=== PATIENT | female | born 1995 | race Caucasian/White ===

== ENCOUNTER 2018-09-06 16:16 | Outpatient (CLI) | payer BC ==
[2018-09-06] MEDS: LACTATED RINGER'S 1,000 ML IV (17:28)
[2018-09-06 17:38] LABS: ADD MAN DIFF? NO
[2018-09-06 17:39] LABS: BASOPHILS % 0.2 % (0.0-2.0); EOSINOPHILS % 0.3 % (0.0-7.0); HEMATOCRIT 35.8 % (37.0-47.0); HEMOGLOBIN 11.8 g/dl (12.0-16.0); LYMPHOCYTES # 1.8 10^3/ul (0.8-2.9); LYMPHOCYTES % 15.8 % (15.0-51.0); MEAN CORPUSCULAR VOLUME 84.8 fl (82.0-101.0); MEAN PLATELET VOLUME 9.3 fl (7.4-10.4); MONOCYTE # 0.7 10^3/ul (0.3-0.9); MONOCYTES % 6.3 % (0.0-11.0); NEUTROPHIL # 8.9 10^3/ul (1.6-7.5); NEUTROPHILS % 77.1 % (39.0-77.0); PLATELET COUNT 206 10^3/UL (140-415); RED BLOOD COUNT 4.22 10^6/ul (4.20-5.40); RED CELL DISTRIBUTION WIDTH 12.2 % (11.5-14.5)
[2018-09-06 17:39] LABS: WHITE BLOOD COUNT 11.6 10^3/ul (4.8-10.8)
[2018-09-06 17:42] LABS: ADD UMIC NO; UR ASCORBIC ACID NEGATIVE (NEGATIVE); UR BILIRUBIN (Dip) NEGATIVE (NEGATIVE); UR BLOOD (Dip) NEGATIVE (NEGATIVE); UR CLARITY CLEAR (CLEAR); UR COLOR YELLOW (YELLOW); UR GLUCOSE (Dip) NEGATIVE (NEGATIVE); UR KETONES (Dip) NEGATIVE (NEGATIVE); UR LEUKOCYTE ESTERASE (Dip) NEGATIVE Leu/ul (NEGATIVE); UR NITRITE (Dip) NEGATIVE (NEGATIVE); UR SPECIFIC GRAVITY (Dip) 1.011 (1.003-1.030); UR TOTAL PROTEIN (Dip) NEGATIVE (NEGATIVE); UR UROBILINOGEN (Dip) NEGATIVE (NEGATIVE)
[2018-09-06 17:57] LABS: LIPASE 150 U/L (23-300)
[2018-09-06 17:57] LABS: AMYLASE 53 U/L (11-123)
[2018-09-06 19:29] LABS: ALANINE AMINOTRANSFERASE 20 IU/L (13-69); ALBUMIN 3.7 g/dl (3.3-4.9); ALBUMIN/GLOBULIN RATIO 1.32; ALKALINE PHOSPHATASE 79 IU/L (42-121); ANION GAP 9 (5-13); ASPARTATE AMINO TRANSFERASE 29 IU/L (15-46); BILIRUBIN,INDIRECT 0.5 mg/dl (0-1.1); BILIRUBIN,TOTAL 0.5 mg/dl (0.2-1.3); BLOOD UREA NITROGEN 8 mg/dl (7-20); CALCIUM 8.5 mg/dl (8.4-10.2); CARBON DIOXIDE 24 mmol/L (21-31); CHLORIDE 104 mmol/L (97-110); CREATININE 0.41 mg/dl (0.44-1.00); Estimated GFR > 60 mL/min (>60); GLUCOSE 84 mg/dl (70-220); POTASSIUM 3.8 mmol/L (3.5-5.1); SODIUM 137 mmol/L (135-144); TOTAL PROTEIN 6.5 g/dl (6.1-8.1)
== END 2018-09-06 20:20 | disposition home or self-care (01) ==
LOC: OBT 16:16 → L-D 16:17 → OBT 20:20
DX: O21.0 Mild hyperemesis gravidarum (principal); Z3A.29 29 weeks gestation of pregnancy
CPT/HCPCS: 36415; 76817; 76818; 80053; 81003; 82150; 83690; 85025; 96360; 96361

== ENCOUNTER 2018-11-05 16:12 | Outpatient (CLI) | payer BC | END 2018-11-05 18:25 | disposition home or self-care (01) | LOC: OBT 16:12 → L-D 16:13 → OBT 18:25 | DX: O36.8130 Decreased fetal movements, third trimester, not applicable or unspecified (principal); Z3A.37 37 weeks gestation of pregnancy | CPT/HCPCS: 76815; 76818 ==

== ENCOUNTER 2018-11-06 22:24 | Outpatient (CLI) | payer BC ==
[2018-11-06 23:27] LABS: ADD UMIC NO; UR ASCORBIC ACID NEGATIVE (NEGATIVE); UR BILIRUBIN (Dip) NEGATIVE (NEGATIVE); UR BLOOD (Dip) NEGATIVE (NEGATIVE); UR CLARITY CLEAR (CLEAR); UR COLOR YELLOW (YELLOW); UR GLUCOSE (Dip) 1+ mg/dL (NEGATIVE); UR KETONES (Dip) NEGATIVE (NEGATIVE); UR LEUKOCYTE ESTERASE (Dip) NEGATIVE Leu/ul (NEGATIVE); UR NITRITE (Dip) NEGATIVE (NEGATIVE); UR SPECIFIC GRAVITY (Dip) 1.014 (1.003-1.030); UR TOTAL PROTEIN (Dip) NEGATIVE (NEGATIVE); UR UROBILINOGEN (Dip) NEGATIVE (NEGATIVE)
[2018-11-06] MEDS: LACTATED RINGER'S 1,000 ML IV (23:51)
[2018-11-06] MEDS: ONDANSETRON 4 MG INJ IV (23:51)
[2018-11-06 23:58] LABS: ADD MAN DIFF? NO
[2018-11-07 00:01] LABS: WHITE BLOOD COUNT 10.6 10^3/ul (4.8-10.8)
[2018-11-07 00:01] LABS: BASOPHILS % 0.2 % (0.0-2.0); EOSINOPHILS % 0.3 % (0.0-7.0); HEMATOCRIT 36.2 % (37.0-47.0); HEMOGLOBIN 11.7 g/dl (12.0-16.0); LYMPHOCYTES # 1.4 10^3/ul (0.8-2.9); LYMPHOCYTES % 12.7 % (15.0-51.0); MEAN CORPUSCULAR HEMOGLOBIN 26.4 pg (29.0-33.0); MEAN CORPUSCULAR HGB CONC 32.3 g/dl (32.0-37.0); MEAN CORPUSCULAR VOLUME 81.7 fl (82.0-101.0); MEAN PLATELET VOLUME 9.8 fl (7.4-10.4); MONOCYTE # 0.7 10^3/ul (0.3-0.9); NEUTROPHIL # 8.4 10^3/ul (1.6-7.5); NEUTROPHILS % 79.3 % (39.0-77.0); PLATELET COUNT 209 10^3/UL (140-415); RED BLOOD COUNT 4.43 10^6/ul (4.20-5.40); RED CELL DISTRIBUTION WIDTH 13.9 % (11.5-14.5)
[2018-11-07 00:20] LABS: ALANINE AMINOTRANSFERASE 10 IU/L (13-69); ALBUMIN 3.5 g/dl (3.3-4.9); ALBUMIN/GLOBULIN RATIO 1.02; ALKALINE PHOSPHATASE 130 IU/L (42-121); AMYLASE 72 U/L (11-123); ANION GAP 6 (5-13); ASPARTATE AMINO TRANSFERASE 14 IU/L (15-46); BILIRUBIN,INDIRECT 0.3 mg/dl (0-1.1); BILIRUBIN,TOTAL 0.3 mg/dl (0.2-1.3); BLOOD UREA NITROGEN 8 mg/dl (7-20); CALCIUM 9.3 mg/dl (8.4-10.2); CARBON DIOXIDE 23 mmol/L (21-31); CHLORIDE 109 mmol/L (97-110); Estimated GFR > 60 mL/min (>60); GLUCOSE 95 mg/dl (70-220); LIPASE 213 U/L (23-300); POTASSIUM 3.9 mmol/L (3.5-5.1); SODIUM 138 mmol/L (135-144); TOTAL PROTEIN 6.9 g/dl (6.1-8.1)
[2018-11-07] MEDS: LACTATED RINGER'S 1,000 ML IV (01:21)
== END 2018-11-07 03:00 | disposition home or self-care (01) ==
LOC: OBT 22:24 → L-D 22:24
DX: O21.2 Late vomiting of pregnancy (principal); O26.893 Other specified pregnancy related conditions, third trimester; R19.7 Diarrhea, unspecified; Z3A.37 37 weeks gestation of pregnancy
CPT/HCPCS: 76818; 80053; 81003; 82150; 83690; 85025; 96361; 96365

== ENCOUNTER 2018-11-19 13:31 | Inpatient (IN) | payer BC ==
[2018-11-19] MEDS ORDERED: CARBOPROST 250 MCG INJ IM (15:30)
[2018-11-19] MEDS ORDERED: MISOPROSTOL 200 MCG TAB PR (15:30)
[2018-11-19] MEDS ORDERED: BUTORPHANOL 2 MG INJ IV (15:30)
[2018-11-19] MEDS ORDERED: BUTORPHANOL 1 MG INJ IV (15:30)
[2018-11-19] MEDS ORDERED: LIDOCAINE 1% (MPF) 30 ML INJ INJ (15:30)
[2018-11-19] MEDS ORDERED: METHYLERGONOVINE 0.2 MG INJ IM (15:30)
[2018-11-19] MEDS ORDERED: OXYTOCIN 30 UNITS/LR 500 ML IV ×2 (15:30)
[2018-11-19] MEDS: AMPICILLIN 2 GM/NS (PMX) 100 ML IV (16:21)
[2018-11-19] MEDS: LACTATED RINGER'S 1,000 ML IV (16:21)
[2018-11-19 16:28] LABS: ADD MAN DIFF? NO
[2018-11-19 16:30] LABS: BASOPHILS % 0.2 % (0.0-2.0); EOSINOPHILS % 0.1 % (0.0-7.0); HEMATOCRIT 38.3 % (37.0-47.0); HEMOGLOBIN 12.4 g/dl (12.0-16.0); LYMPHOCYTES # 1.5 10^3/ul (0.8-2.9); MEAN CORPUSCULAR HEMOGLOBIN 26.2 pg (29.0-33.0); MEAN CORPUSCULAR HGB CONC 32.4 g/dl (32.0-37.0); MEAN CORPUSCULAR VOLUME 80.8 fl (82.0-101.0); MEAN PLATELET VOLUME 9.6 fl (7.4-10.4); MONOCYTE # 0.5 10^3/ul (0.3-0.9); MONOCYTES % 5.2 % (0.0-11.0); NEUTROPHILS % 79.2 % (39.0-77.0); PLATELET COUNT 204 10^3/UL (140-415); RED BLOOD COUNT 4.74 10^6/ul (4.20-5.40); RED CELL DISTRIBUTION WIDTH 14.5 % (11.5-14.5)
[2018-11-19 16:30] LABS: WHITE BLOOD COUNT 10.1 10^3/ul (4.8-10.8)
[2018-11-19 16:50] LABS: INR 0.91; PROTIME 12.4 Sec (11.9-14.9)
[2018-11-19] MEDS: MISOPROSTOL 50 MCG CAPSULE PO ×2 (16:57→21:28)
[2018-11-19] MEDS: AMPICILLIN 1 GM/NS (PMX) 50 ML IV (20:20)
[2018-11-20] MEDS: AMPICILLIN 1 GM/NS (PMX) 50 ML IV ×7 (00:51→23:33)
[2018-11-20] MEDS: MISOPROSTOL 50 MCG CAPSULE PO ×6 (00:52→21:00)
[2018-11-20] MEDS: LACTATED RINGER'S 1,000 ML IV ×4 (03:37→20:51)
[2018-11-20] MEDS ORDERED: ACETAMINOPHEN 325 MG TAB PO (04:00)
[2018-11-20 15:10] LABS: RAPID PLASMA REAGIN NONREACTIVE (NR)
[2018-11-20] MEDS: OXYTOCIN 30 UNITS/LR 500 ML IV (20:49)
[2018-11-20] MEDS ORDERED: FENTAnyl 2MCG/ML-ROPIV 0.2% 100 ML (21:29)
[2018-11-20] MEDS ORDERED: ONDANSETRON 4 MG INJ IV (21:30)
[2018-11-20] MEDS ORDERED: NALOXONE (0.4 MG/ML) INJ IV (21:30)
[2018-11-20] MEDS ORDERED: DIPHENHYDRAMINE 50 MG INJ IV (21:30)
[2018-11-21] MEDS: MISOPROSTOL 50 MCG CAPSULE PO (01:00)
[2018-11-21] MEDS: AMPICILLIN 1 GM/NS (PMX) 50 ML IV ×6 (03:15→23:24)
[2018-11-21] MEDS: FENTAnyl 2MCG/ML-ROPIV 0.2% 100 ML BAG EPI ×3 (05:04→21:50)
[2018-11-21] MEDS: LACTATED RINGER'S 1,000 ML IV ×2 (06:39→15:30)
[2018-11-22] MEDS: LACTATED RINGER'S 1,000 ML IV (01:01)
[2018-11-22] MEDS: AMPICILLIN 1 GM/NS (PMX) 50 ML IV (03:29)
[2018-11-22] MEDS: FENTAnyl 2MCG/ML-ROPIV 0.2% 100 ML BAG EPI (04:37)
[2018-11-22] MEDS ORDERED: MINERAL OIL LIGHT 10 ML VIAL (06:28)
[2018-11-22] MEDS: MINERAL OIL LIGHT 10 ML VIAL TOP (06:59)
[2018-11-22] MEDS: OXYTOCIN 30 UNITS/LR 500 ML IV ×4 (07:16→17:21)
[2018-11-22] MEDS: LACTATED RINGER'S 1,000 ML IV* ×3 (07:21→23:21)
[2018-11-22] MEDS ORDERED: OXYTOCIN 30 UNITS/LR 500 ML IV (07:30)
[2018-11-22] MEDS ORDERED: MISOPROSTOL 200 MCG TAB PR (07:30)
[2018-11-22] MEDS ORDERED: CARBOPROST 250 MCG INJ IM (07:30)
[2018-11-22] MEDS ORDERED: METHYLERGONOVINE 0.2 MG INJ IM (07:30)
[2018-11-22] MEDS ORDERED: HYDROCODONE/APAP (5/325) TAB PO (07:30)
[2018-11-22] MEDS: LANOLIN HPA 1 PKT TOP (11:20)
[2018-11-22] MEDS: WITCH HAZEL/GLYCERIN PAD PR (11:20)
[2018-11-22] MEDS: IBUPROFEN 600 MG TAB PO ×3 (11:20→23:29)
[2018-11-22] MEDS: BENZOCAINE 20% 56 ML SPRAY TOP (11:20)
[2018-11-23] MEDS: IBUPROFEN 600 MG TAB PO ×4 (05:19→23:47)
[2018-11-23 08:42] LABS: ADD MAN DIFF? NO
[2018-11-23 08:45] LABS: BASOPHILS % 0.3 % (0.0-2.0); EOSINOPHILS # 0.1 10^3/ul (0.0-0.5); EOSINOPHILS % 0.7 % (0.0-7.0); HEMATOCRIT 32.8 % (37.0-47.0); HEMOGLOBIN 10.5 g/dl (12.0-16.0); LYMPHOCYTES # 1.6 10^3/ul (0.8-2.9); LYMPHOCYTES % 21.7 % (15.0-51.0); MEAN CORPUSCULAR HEMOGLOBIN 26.6 pg (29.0-33.0); MEAN PLATELET VOLUME 9.9 fl (7.4-10.4); MONOCYTE # 0.5 10^3/ul (0.3-0.9); MONOCYTES % 7.1 % (0.0-11.0); NEUTROPHIL # 5.3 10^3/ul (1.6-7.5); NEUTROPHILS % 69.8 % (39.0-77.0); PLATELET COUNT 161 10^3/UL (140-415); RED BLOOD COUNT 3.95 10^6/ul (4.20-5.40); RED CELL DISTRIBUTION WIDTH 14.7 % (11.5-14.5)
[2018-11-23 08:45] LABS: WHITE BLOOD COUNT 7.5 10^3/ul (4.8-10.8)
[2018-11-23] MEDS: INFLUENZA VIRUS VACCINE 0.5 ML (DISPENSING) IM* (11:34)
[2018-11-24] MEDS: IBUPROFEN 600 MG TAB PO ×2 (05:41→12:44)
[2018-11-24] MEDS: DIPHTH/TET/ACEL PERTUSS (ADULT) 0.5 ML VIAL IM* (10:32)
== END 2018-11-24 14:30 | disposition home or self-care (01) | DRG 807 ==
LOC: OBT 13:31 → PP1 11-22 08:05 → L-D 13:31 → OBT 15:00 → L-D 15:00
PROVIDERS: Obstetrics & Gynecology
PROC: 10E0XZZ Delivery of Products of Conception, External Approach (ICD-10-PCS; principal; 2018-11-20)
PROC: 0HQ9XZZ Repair Perineum Skin, External Approach (ICD-10-PCS; 2018-11-20)
DX: O70.0 First degree perineal laceration during delivery (principal); Z37.0 Single live birth; O69.81X0 Labor and delivery complicated by cord around neck, without compression, not applicable or unspecified; Z3A.39 39 weeks gestation of pregnancy
CPT/HCPCS: 62319; 76815; 76818; 85025; 85610; 85730; 86592; 86850; 86900; 86901; 90715